=== PATIENT | male | born 1960 | race Caucasian/White ===

== ENCOUNTER 2023-12-06 09:54 | Day surgery (SDC) | payer MEDICARE, MEDICAID ==
[2023-12-06] VITALS (17 sets, daily range): BP systolic 111–153; BP diastolic 55–78; PULSE 55–80; RESP 12–22; TEMP 97.8; O2SAT 97–100
[~2023-12-06] VITALS: Ht 176.5 cm; Wt 74.9 kg
[~2023-12-06 09:54] MED LIST: CHOL1LIQ PO; CLOP75TA15 PO; LIONS MANE MUSHROOM PO; LORA2TAB96 PO; LYSI500T11 PO; TUMERIC PO; VENL75TA4 PO; cefazolin 2gm/D5W 100mL 100 ML IV ONE; famotidine 20mg tablet PO ONE; ringers solution, lacted 1,000 ML IV SCH
[2023-12-06 12:14] LABS: BASOPHILS % (AUTO) 0.3 % (0-1); EOSINOPHILS # (AUTO) 0.1 X10'3 (0-0.9); EOSINOPHILS % (AUTO) 0.7 % (0-6); LYMPHOCYTES # (AUTO) 1.4 X10'3 (1.1-4.8); LYMPHOCYTES % (AUTO) 15.1 % (21-51); MEAN CORPUSCULAR HEMOGLOBIN 31.9 PG (27.0-31.0); MEAN CORPUSCULAR HGB CONC 33.4 g/dL (33.0-36.5); MEAN CORPUSCULAR VOLUME 95.6 FL (78-98); MEAN PLATELET VOLUME 6.8 FL (7.4-10.4); MONOCYTES # (AUTO) 0.6 X10'3 (0-0.9); MONOCYTES % (AUTO) 6.1 % (2-12); NEUTROPHILS # (AUTO) 7.1 X10'3 (1.8-7.7); NEUTROPHILS % (AUTO) 77.8 % (42-75); PRE OP HEMATOCRIT 42.6 % (42.0-52.0); PRE OP HEMOGLOBIN 14.2 g/dL (14.0-17.9); PRE OP PLATELET COUNT 295 X10'3 (140-440); PRE OP WHITE BLOOD COUNT 9.2 10'3 (4.8-10.8); RED BLOOD COUNT 4.46 X10'6 (4.70-6.10); RED CELL DISTRIBUTION WIDTH 15.1 % (11.5-14.5)
[2023-12-06 12:17] LABS: BILIRUBIN,URINE NEGATIVE (Neg); CLARITY,URINE CLEAR (Clear); COLOR,URINE YELLOW (Yellow); GLUCOSE, URINE NEGATIVE (Neg); KETONES,URINE NEGATIVE (Neg); LEUKOCYTE ESTERASE ,URINE NEGATIVE (Neg); NITRITES, URINE NEGATIVE (Neg); OCCULT BLOOD,URINE NEGATIVE (Neg); PROTEIN,URINE NEGATIVE (Neg)
[2023-12-06 12:19] LABS: UA COLLECTION TYPE NON-SPECIFIED
[2023-12-06 12:31] LABS: ALBUMIN 3.4 G/DL (3.4-5.0); ALKALINE PHOSPHATASE 58 IU/L (46-116); BLOOD UREA NITROGEN 12 MG/DL (7-18); BUN/CREATININE RATIO 13.5 (10.0-20.0); CALCIUM 8.7 MG/DL (8.5-10.1); CHLORIDE 105 MMOL/L (99-107); CREATININE 0.89 MG/DL (0.60-1.10); PRE OP ALT 24 U/L (30-65); PRE OP ANION GAP 4 (8-16); PRE OP AST 12 U/L (10-37); PRE OP BILIRUB, TOTAL 0.3 MG/DL (0.0-1.0); PRE OP GLUCOSE 94 MG/DL (70-104); PRE OP POTASSIUM 3.7 MMOL/L (3.4-5.1); PRE OP SODIUM 138 MMOL/L (135-145); TOTAL CARBON DIOXIDE 28.9 MMOL/L (24-32); TOTAL PROTEIN 6.9 G/DL (6.4-8.2); eCRCL 87 ML/MIN; eGFR 87 ML/MIN
[2023-12-06] MEDS ORDERED: BUPIVAcaine 2.5mg/ml inj 50ml vial (contains preservative) ONE (14:12)
[2023-12-06] MEDS ORDERED: rocuronium 10mg/ml inj IV ONE ×2 (14:27→14:45)
[2023-12-06] MEDS ORDERED: furosemide 20 MG/2 ML vial ONE (14:27)
[2023-12-06] MEDS ORDERED: sevoflurane 250ml liquid IH ONE (14:27)
[2023-12-06] MEDS ORDERED: neostigmine methylsulfate 1 MG/ML 10ml vial ONE (14:27)
[2023-12-06] MEDS ORDERED: fentaNYL/PF 50MCG/1 ML 2ML syringe ONE (14:42)
[2023-12-06] MEDS ORDERED: midazolam 1 mg/ML 2ml injection ONE (14:42)
[2023-12-06] MEDS ORDERED: LIDOcaine 2% (20mg/ml) 5ml vial ONE (14:44)
[2023-12-06] MEDS ORDERED: dexamethasone sod phosphate 4mg/ml inj. ONE (14:44)
[2023-12-06] MEDS ORDERED: glycopyrrolate 0.2mg/ml inj ONE (14:44)
[2023-12-06] MEDS ORDERED: propofol inj 20 ML IV ONE (14:44)
[2023-12-06] MEDS ORDERED: ondansetron/PF 4mg/2ml inj ONE (14:44)
[2023-12-06] MEDS ORDERED: acetaminophen 1,000mg/100ml IV 100 ML IV ONE (14:47)
[2023-12-06] MEDS ORDERED: hydrALAZINE 20mg/ml inj. IV ONE (15:09)
[2023-12-06] MEDS ORDERED: BUPIVAcaine/PF 2.5 mg/ml (0.25%) 30ml vial IJ ONE (15:18)
[2023-12-06] MEDS ORDERED: labetalol 20mg/4ml (5mg/ml) syringe IV ONE (15:37)
[2023-12-06] MEDS ORDERED: ringers solution, lacted 1,000 ML IV SCH (16:20)
[2023-12-06] MEDS ORDERED: ondansetron/PF 4mg/2ml inj IV PRN (16:20)
[2023-12-06] MEDS ORDERED: labetalol 20mg/4ml (5mg/ml) syringe IV PRN (16:20)
[2023-12-06] MEDS ORDERED: fentaNYL/PF 50MCG/1 ML 2ML syringe IV PRN ×2 (16:20)
[2023-12-06] MEDS ORDERED: hydrALAZINE 20mg/ml inj. IV PRN (16:20)
[2023-12-06] MEDS ORDERED: morphine 2 MG/ML inj. syringe IV PRN (16:20)
[2023-12-06] MEDS: morphine 4 MG/ML inj SYRINge IV PRN ×2 (16:29→16:42)
== END 2023-12-06 18:08 | disposition home or self-care (01) ==
LOC: PAS 09:54
PROVIDERS: ATTEND Surgery
DX: K40.90 Unilateral inguinal hernia, without obstruction or gangrene, not specified as recurrent (principal); D17.5 Benign lipomatous neoplasm of intra-abdominal organs; J44.9 Chronic obstructive pulmonary disease, unspecified; F41.9 Anxiety disorder, unspecified; F12.90 Cannabis use, unspecified, uncomplicated; Z87.891 Personal history of nicotine dependence; Z79.899 Other long term (current) drug therapy; Z98.890 Other specified postprocedural states; Z80.8 Family history of malignant neoplasm of other organs or systems
CPT/HCPCS: 36415; 49505; 80053; 81003; 82948; 85025; C1781; J0131; J0360; J0690; J1100; J1940; J2250; J2270; J2405; J2704; J2710; J3010; J3490; J7030; J7120; Z7506; Z7508; Z7512; A4215; A4618; C1758